=== PATIENT | male | born 1945 | race Caucasian/White ===

== ENCOUNTER 2017-01-30 08:24 | Inpatient (IN) | payer MEDICARE, OTHER ==
[~2017-01-30] VITALS: Ht 175.3 cm; Wt 109.0 kg
[2017-01-30 09:18] LABS: BASOPHIL 0.1 % (0-2); EOSINOPHIL 0 % (0-7); HCT 38.2 % (42.0-52.0); HGB 12.1 g/dl (13.2-18.0); LYMPHOCYTE 25.7 % (15-48); MCH 25.5 pg (25.0-31.0); MCHC 31.7 g/dL (32.0-36.0); MCV 80.6 fL (78.0-100.0); MONOCYTE 10.2 % (0-12); MPV 10.6 fL (6.0-9.5); PLT 265 K/uL (150-400); RBC 4.74 M/uL (4.70-6.00); RDW 14.9 % (11.5-14.0)
[2017-01-30 09:19] LABS: WBC 39.6 K/uL (4.0-10.5)
[2017-01-30 09:36] LABS: ALBUMIN 3.8 g/dL (3.4-4.8); BILIRUBIN - TOTAL 0.8 mg/dL (0.1-1.0); GLOBULIN (CALCULATION) 2.9 g/dL (2.2-4.2); MAGNESIUM 1.38 mg/dL (1.40-2.10); POTASSIUM 3.7 mmol/L (3.5-5.1); TOTAL PROTEIN 6.7 g/dL (6.4-8.3)
[2017-01-30 09:39] LABS: TROPONIN T < 0.010 ng/mL
[2017-01-30 09:41] LABS: PRO-BNP 1122 pg/mL (0-125)
[2017-01-30 09:45] LABS: LACTIC ACID 1.6 mmol/L (0.5-2.2)
[2017-01-30 10:26] LABS: BILIRUBIN 1+ mg/dL (NEGATIVE); BLOOD NEGATIVE Ery/uL (NEGATIVE); CLARITY CLEAR (CLEAR); COLOR YELLOW (YELLOW); GLUCOSE (U) NORMAL (NORMAL); KETONE (U) TRACE mg/dL (NEGATIVE); LEUKOCYTES NEGATIVE Leu/uL (NEGATIVE); NITRITE NEGATIVE (NEGATIVE); PROTEIN TRACE (LOW) mg/dL (NEGATIVE); UROBILINOGEN 0.2 mg/dL (0.2-1.0); pH 5.5 (5.0-9.0)
[2017-01-30 10:30] LABS: BACTERIA TRACE
[2017-01-30 10:31] LABS: BENZODIAZEPINES NEGATIVE (NEGATIVE); COCAINE NEGATIVE (NEGATIVE); MUCOUS MODERATE
[2017-01-30 10:32] LABS: AMPHETAMINES NEGATIVE (NEGATIVE); BARBITURATES NEGATIVE (NEGATIVE); MARIJUANA (THC) NEGATIVE (NEGATIVE); METHADONE NEGATIVE (NEGATIVE); TRICYCLIC ANTIDEPRESSANT NEGATIVE (NEGATIVE)
[2017-01-30 13:54] LABS: INR 2.62 (0.9-1.2); PROTHROMBIN TIME 27.3 SECONDS (11.7-14.0)
[2017-01-31 05:11] LABS: HGB 10.7 g/dl (13.2-18.0); MCH 25.2 pg (25.0-31.0); MCHC 30.6 g/dL (32.0-36.0); MCV 82.4 fL (78.0-100.0); MPV 10.4 fL (6.0-9.5); RBC 4.25 M/uL (4.70-6.00); RDW 15.1 % (11.5-14.0); WBC 23.8 K/uL (4.0-10.5)
[2017-01-31 05:17] LABS: INR 2.65 (0.9-1.2); PROTHROMBIN TIME 27.6 SECONDS (11.7-14.0)
[2017-01-31 05:29] LABS: CREATININE 0.8 mg/dL (0.7-1.2); POTASSIUM 3.2 mmol/L (3.5-5.1)
[2017-02-01 05:12] LABS: HCT 35.2 % (42.0-52.0); HGB 10.8 g/dl (13.2-18.0); MCH 25.2 pg (25.0-31.0); MCHC 30.7 g/dL (32.0-36.0); MCV 82.2 fL (78.0-100.0); MPV 10.6 fL (6.0-9.5); RBC 4.28 M/uL (4.70-6.00); RDW 15.2 % (11.5-14.0); WBC 18.6 K/uL (4.0-10.5)
[2017-02-01 05:27] LABS: INR 2.33 (0.9-1.2); PROTHROMBIN TIME 24.9 SECONDS (11.7-14.0)
[2017-02-01 05:40] LABS: CREATININE 0.8 mg/dL (0.7-1.2); POTASSIUM 3.6 mmol/L (3.5-5.1)
[2017-02-02 06:32] LABS: HCT 35.6 % (42.0-52.0); HGB 10.9 g/dl (13.2-18.0); MCH 25.2 pg (25.0-31.0); MCHC 30.6 g/dL (32.0-36.0); MCV 82.2 fL (78.0-100.0); MPV 10.6 fL (6.0-9.5); RBC 4.33 M/uL (4.70-6.00); RDW 15.3 % (11.5-14.0); WBC 17.6 K/uL (4.0-10.5)
[2017-02-02 06:43] LABS: INR 2.65 (0.9-1.2); PROTHROMBIN TIME 27.6 SECONDS (11.7-14.0)
[2017-02-02 06:59] LABS: CREATININE 0.8 mg/dL (0.7-1.2); POTASSIUM 3.5 mmol/L (3.5-5.1)
== END 2017-02-02 14:00 | disposition home or self-care (01) | DRG 190 ==
LOC: FER 08:24 → FMS 11:39
PROVIDERS: Emergency Medicine; Internal Medicine; ADMIT Internal Medicine
DX: J44.0 Chronic obstructive pulmonary disease with (acute) lower respiratory infection (principal); J15.9 Unspecified bacterial pneumonia; C91.10 Chronic lymphocytic leukemia of B-cell type not having achieved remission; I50.9 Heart failure, unspecified; E11.9 Type 2 diabetes mellitus without complications; I48.0 Paroxysmal atrial fibrillation; J44.1 Chronic obstructive pulmonary disease with (acute) exacerbation; I25.10 Atherosclerotic heart disease of native coronary artery without angina pectoris; Z79.01 Long term (current) use of anticoagulants; E78.5 Hyperlipidemia, unspecified; K21.9 Gastro-esophageal reflux disease without esophagitis; M19.90 Unspecified osteoarthritis, unspecified site; G47.33 Obstructive sleep apnea (adult) (pediatric); F41.9 Anxiety disorder, unspecified; Z87.442 Personal history of urinary calculi; Z98.42 Cataract extraction status, left eye; Z98.41 Cataract extraction status, right eye; Z96.653 Presence of artificial knee joint, bilateral
CPT/HCPCS: 36415; 71020; 80048; 80053; 80305; 81001; 82962; 83605; 83735; 83880; 84484; 85025; 85379; 85610; 87040; 87449; 93005; 94010; 94640; 94667; 94668; 97116; 97161; 97165; 97530; 97530-GP; 97535; J0456; J1815; J1956; J2543

== ENCOUNTER 2022-04-16 18:06 | Emergency (ER) | payer MEDICARE, OTHER ==
[2022-04-16 18:58] LABS: BASOPHIL 0.4 % (0-2); EOSINOPHIL 0.2 % (0-7); HCT 47.4 % (42.0-52.0); HGB 14.9 g/dl (13.2-18.0); LYMPHOCYTE 45.1 % (15-48); MCH 29.5 pg (25.0-31.0); MCHC 31.4 g/dL (32.0-36.0); MCV 93.9 fL (78.0-100.0); MONOCYTE 6.4 % (0-12); MPV 10.1 fL (6.0-9.5); NEUTROPHIL 47.7 % (41-80); NRBC 0; PLT 214 K/uL (150-400); RBC 5.05 M/uL (4.70-6.00); RDW 14.2 % (11.5-14.0); WBC 16.3 K/uL (4.0-10.5)
[2022-04-16 19:13] LABS: INR 1.3 (0.9-1.2); PROTHROMBIN TIME 15.8 SECONDS (11.9-13.9)
[2022-04-16 19:19] LABS: ALBUMIN 3.4 g/dL (3.4-5.0); BILIRUBIN - TOTAL 0.8 mg/dL (0.2-1.0); BUN/CREAT RATIO (CALC) 11.6 RATIO; CREATININE 0.69 mg/dL (0.67-1.17); GLOBULIN (CALCULATION) 3.2 g/dL; TOTAL PROTEIN 6.6 g/dL (6.4-8.2)
[2022-04-16 19:35] LABS: CORONAVIRUS 2019 SARS-COV-2 NEGATIVE (NEGATIVE); INFLUENZA A NAA NEGATIVE (NEGATIVE)
== END 2022-04-16 21:43 | disposition home or self-care (01) ==
LOC: FER 18:06
PROVIDERS: Emergency Medicine
DX: R07.89 Other chest pain (principal); I10 Essential (primary) hypertension; J44.9 Chronic obstructive pulmonary disease, unspecified; Z20.822 Contact with and (suspected) exposure to COVID-19; Z91.09 Other allergy status, other than to drugs and biological substances
CPT/HCPCS: 36415; 71045; 80053; 83880; 84484; 85025; 85610; 85730; 93005; J2405; U0002